=== PATIENT | male | born 1950 | race Caucasian/White ===

== ENCOUNTER 2018-04-27 00:07 | Emergency (ER) | payer BC, OTHER ==
--- NOTE | 2018-04-27 01:12 | PDOC ---
History of Present Illness - General Stated Complaint: LT SHOULDER PAIN Time Seen by Provider: 04/27/18 01:11 History Source: Patient, Family (Son) Exam Limitations: No Limitations - History of Present Illness Initial Comments: Pt is a 67 yo M, with PMH of HTN and GERD, who is presenting with complaints of L shoulder pain x3 days. The pt had a L rotator cuff injury about 1 year ago, and was sent to PT at that time, which improved the injury. On Thursday, the pt was shoveling snow, which exacerbated his pain. He has tried OTC tylenol and topical cream with minimal relief. The pt has an appointment with his PCP tomorrow, but was unable to sleep this evening due to pain. He denies any weakness, numbness, or tingling in the L arm, but has pain with L arm abduction. Pt denies any fevers/chills, headache, vision changes, syncope, chest pain, palpitations, SOB, nausea/vomiting, abdominal pain, urinary symptoms , diarrhea/constipation, or other joint/leg swelling. Pt is also being treated for h pylori with abx triple therapy, but denies any GI bleeding in stool or vomit. Takes no other anticoagulant medications nor has history of bleeds/varices. Social: Pt denies any cigarette, alcohol, or drug use. Pt denies any recent travel or sick contacts. Surgical: ortho - finger fracture reductions. Family: no relevant history. 04/27/18 02:01 Past History - Travel Traveled outside of the country in the last 30 days: No Close contact w/someone who was outside of country & ill: No - Past Medical History Allergies/Adverse Reactions: Allergies Allergy/AdvReac Type Severity Reaction Status Date / Time No Known Allergies Allergy Verified 04/27/18 01:43 Review of Systems - Review of Systems Able to Perform ROS?: Yes Is the patient limited Croatian proficient: No Constitutional: Yes: Weight Stable. No: Chills, Diaphoresis, Fever, Loss of Appetite, Weakness HEENTM: No: Recent change in vision, Nose Congestion, Throat Pain, Throat Swelling Respiratory: No: Cough, Shortness of Breath Cardiac (ROS): No: Chest Pain, Edema, Irregular Heart Rate, Lightheadedness, Palpitations, Syncope, Chest Tightness ABD/GI: No: Constipated, Diarrhea, Nausea, Poor Appetite, Poor Fluid Intake, Vomiting : No: Burning, Pain Musculoskeletal: Yes: See HPI, Joint Pain. No: Back Pain, Joint Swelling, Muscle Pain, Muscle Weakness, Neck Pain, Joint Stiffness Integumentary: No: Bruising, Erythema, Rash Neurological: No: Headache, Numbness, Paresthesia, Pre-Existing Deficit, Tingling, Weakness, Dizziness Psychiatric: No: Sleep Pattern Change, Change in Appetite Endocrine: No: Increased Urine, Change in Weight Hematologic/Lymphatic: No: Anemia, Blood Clots, Easy Bleeding, Easy Bruising All Other Systems: Reviewed and Negative *Physical Exam - Vital Signs 04/27/18 02:16 Vital Signs Temp Pulse Resp BP Pulse Ox 98.2 F 74 16 122/78 99 04/27/18 00:07 04/27/18 00:07 04/27/18 00:07 04/27/18 00:07 04/27/18 00:07 - Physical Exam Comments: Vitals stable, pt afebrile. Pt in NAD, normal body habitus. PE showed pt alert and oriented. multicultural manager generally intact, muscular strength and sensation intact. Pt has intact sensation in radial, ulnar, and median distributions. Pt has decreased strength with supraspinatus test (cannot extend L arm against resistance). No crepitus or displacement of L shoulder. Tenderness elicited with abduction of L shoulder, but strength intact with abduction. Eyes PERRLA, EOMI. Oropharynx without erythema or exudates, no LAD b/l. No nasal congestion, hearing intact. Clear heart sounds, S1/S2, no JVD, b/l pedal edema, or heart murmur. Clear lung sounds, no respiratory distress, wheezes, crackles, or accessory muscle use. No abdominal or CVA tenderness to palpation, no rebound, no guarding. Abdomen soft, non-distended, and with normoactive bowel sounds. Skin without jaundice or rash. 04/27/18 02:16 Medical Decision Making - Medical Decision Making Pt was seen at bedside, also will be seen by attending Dr. Hernandez. Pt presenting with complaints of L shoulder pain x3 days. The pt had a L rotator cuff injury about 1 year ago, and was sent to PT at that time, which improved the injury. On Thursday, the pt was shoveling snow, which exacerbated his pain. He has tried OTC tylenol and topical cream with minimal relief. The pt has an appointment with his PCP tomorrow, but was unable to sleep this evening due to pain. He denies any weakness, numbness, or tingling in the L arm, but has pain with L arm abduction. Pt denies any fevers/chills, headache, vision changes, syncope, chest pain, palpitations, SOB, nausea/vomiting, abdominal pain, urinary symptoms, diarrhea/constipation, or other joint/leg swelling. Vitals stable, pt afebrile. Pt in NAD, normal body habitus. PE showed pt alert and oriented. multicultural manager generally intact, muscular strength and sensation intact. Pt has intact sensation in radial, ulnar, and median distributions. Pt has decreased strength with supraspinatus test (cannot extend L arm against resistance). No crepitus or displacement of L shoulder. Tenderness elicited with abduction of L shoulder, but strength intact with abduction. Eyes PERRLA, EOMI. Oropharynx without erythema or exudates, no LAD b/l. No nasal congestion, hearing intact. Clear heart sounds, S1/S2, no JVD, b/l pedal edema, or heart murmur. Clear lung sounds, no respiratory distress, wheezes, crackles, or accessory muscle use. No abdominal or CVA tenderness to palpation, no rebound, no guarding. Abdomen soft, non-distended, and with normoactive bowel sounds. Skin without jaundice or rash. Likely worsening/exacerbation of rotator cuff tear. Pt had no trauma, unlikely fracture or dislocation. Providing 15 mg IM toradol and 5 mg PO flexeril for pain. Pt has no history of anticoagulation or GI bleeding. Will continue to reassess pt and monitor for symptomatic improvement. 04/27/18 01:35 *DC/Admit/Observation/Transfer Diagnosis at time of Disposition: Left shoulder pain Qualifiers: Chronicity: chronic Qualified Code(s): M25.512 - Pain in left shoulder - Discharge Dispostion Disposition: HOME Condition at time of disposition: Improved Decision to Admit order: No - Referrals Referrals: Brown Liu [Primary Care Provider] - - Patient Instructions Printed Discharge Instructions: DI for Rotator Cuff Injury Additional Instructions: You were seen in the ER today for left shoulder pain. Your pain improved after a shot of 15 mg IM toradol and 5 mg PO flexeril. Please follow-up with your primary care doctor for your scheduled appointment to discuss your visit and make sure your symptoms have improved. Please return to the ER if you have any worsening pain, development of fevers or chills, loss of consciousness, inability to tolerate food or fluids, or any other concerns. You can continue using warm or cold compresses at home as needed with tylenol. - Post Discharge Activity
[2018-04-27] MEDS ORDERED: KETOROLAC TROMETHAMINE 15 MG/ML VIAL IM ONE (01:30)
[2018-04-27 01:43] VITALS: BP 122/78; PULSE 74; TEMP 98.2; BMI 26.5
--- NOTE | 2018-04-27 01:50 | PDOC ---
Attending Attestation - Resident Resident Name: MarniCarolee - ED Attending Attestation I have performed the following: I have examined & evaluated the patient, The case was reviewed & discussed with the resident, I agree w/resident's findings & plan, Exceptions are as noted - HPI HPI: 04/27/18 01:49 this 67 yo male has a h/o left arm torn rotator cuff and shoveled snow recently making his left shoulder worse. - Physicial Exam PE: 04/27/18 01:50 wnwd 67 yo male with left shoulder pain head ncat neck supple lungs cta b/l cvs [id number] abd flat,nontender skin warm and dry left shoulder : pain upon rotating his arm inward and he has difficulty raising the arm, he also has pain upon abducting his left arm - Medical Decision Making 04/27/18 02:02 plan pain meds and ortho follow up chronic left shoulder rotator cuff tear pain that has exacerbated after shoveling snow
[2018-04-27] MEDS ORDERED: CYCLOBENZAPRINE HCL 10 MG TABLET (FP) PO ONE (02:05)
[2018-04-27] MEDS ORDERED: KETOROLAC TROMETHAMINE 30 MG/1 ML VIAL ONE (02:06)
[2018-04-27] MEDS ORDERED: CYCLOBENZAPRINE HCL 10 MG TABLET (FP) ONE (02:06)
== END 2018-04-27 03:02 | disposition home or self-care (01) ==
LOC: JER 00:07
PROC: 3E0233Z Introduction of Anti-inflammatory into Muscle, Percutaneous Approach (ICD-10-PCS; principal; 2018-04-27)
DX: M75.102 Unspecified rotator cuff tear or rupture of left shoulder, not specified as traumatic (principal); X50.0XXA Overexertion from strenuous movement or load, initial encounter; Y93.H1 Activity, digging, shoveling and raking; Y92.89 Other specified places as the place of occurrence of the external cause; Y99.8 Other external cause status
CPT/HCPCS: 99281-25